=== PATIENT | female | born 1980 | race Caucasian/White ===

== ENCOUNTER → 2018-11-21 | Outpatient (CLI) | payer OTHER ==
[~2018-11-21] MED LIST: COLACE100 MG PO; HYDROCODONE-AP1 EAC6 PO; PRILOSEC20 MG PO; VENTOLIN HFA 1818 GM INH
== END ==
LOC: CAT 11:22
DX: Z13.6 Encounter for screening for cardiovascular disorders (principal); E78.00 Pure hypercholesterolemia, unspecified; I25.10 Atherosclerotic heart disease of native coronary artery without angina pectoris

== ENCOUNTER → 2019-05-29 | Outpatient (CLI) | payer OTHER | LOC: SJCVCIMAG 11:22 | DX: R06.00 Dyspnea, unspecified (principal); R07.9 Chest pain, unspecified; E78.5 Hyperlipidemia, unspecified; F17.210 Nicotine dependence, cigarettes, uncomplicated; Z79.899 Other long term (current) drug therapy ==

== ENCOUNTER → 2020-01-11 | Outpatient (CLI) | payer OTHER ==
[~2020-01-11] MED LIST changes: +FLONASE 0.05%50 MCG NARES; +OMEPRAZOLE 20 M20 M1 PO; +ZYRTEC10 M5 PO
== END ==
LOC: LAB
PROVIDERS: ATTEND Internal Medicine Gastroenterology
DX: Z01.812 Encounter for preprocedural laboratory examination (principal); Z20.828 Contact with and (suspected) exposure to other viral communicable diseases

== ENCOUNTER → 2020-01-14 | Outpatient (CLI) | payer OTHER ==
[~2020-01-14] VITALS: Ht 170.2 cm; Wt 65.8 kg
--- NOTE | 2020-01-15 17:06 | PATH ---
[facility] [address] [place] [address] PATHOLOGY RPT PROCEDURE Name: JACI DAI Room #: REG [facility].#: [id number] Admission: 01/14/20 Date of : 80 Discharge: Report #: [id number] Path Case #: [id number] [facility] Accession Number: [id number] . 01 Material submitted: . colon - SIGMOID COLON POLYP X3. Modifiers: sigmoid . 01 Clinical history: . HX OF ADENOMATOUS POLYP, COLON POLYPS . 02 Diagnosis: Polyp x3, sigmoid colon polyps, endoscopic biopsy: - All fragments showing a hyperplastic polyp. - Negative for dysplasia. ([employer]; 01/15/2020) MBR 01/15/2020 1412 Local . 02 Electronically signed: . Aditi Price MD, Pathologist NPI- [id number] . 01 Gross description: . The specimen is received in formalin, labeled "Jaci Dai, sigmoid colon polyp x3". Received are three segments of pale monahan soft tissue ranging in size from 0.6 to 0.8 cm in maximum dimensions. The surgical margin of the larger segment is inked and bisected. The specimen is committed entirely in cassette A1. (CAA; 01/14/2020) QA/QA 01/14/2020 1754 Local . 02 Pathologist provided ICD-10: K63.5, Z86.010 . 02 CPT . 294226 Specimen Comment: A courtesy copy of this report has been sent to [phone] Specimen Comment: [phone] Specimen Comment: Report sent to / DR COWAN Performed at: [address], [place] [id number] MD Eder Krueger MD Phone: [phone] Performed at: [address] [id number] MD Aditi Price MD Phone: [phone]
== END | disposition home or self-care (01) ==
LOC: GI 07:49
PROVIDERS: ATTEND Internal Medicine Gastroenterology
DX: Z12.11 Encounter for screening for malignant neoplasm of colon (principal); Z86.010 Personal history of colon polyps; K63.5 Polyp of colon; J45.909 Unspecified asthma, uncomplicated; K21.9 Gastro-esophageal reflux disease without esophagitis; Z98.890 Other specified postprocedural states; Z79.899 Other long term (current) drug therapy; Z90.710 Acquired absence of both cervix and uterus
CPT/HCPCS: 62110; 62900

== ENCOUNTER → 2020-02-07 | Outpatient (CLI) | payer OTHER | LOC: LAB 07:20 | PROVIDERS: ATTEND Family Medicine | DX: Z20.828 Contact with and (suspected) exposure to other viral communicable diseases (principal) ==